=== PATIENT | male | born 1965 | race Caucasian/White ===

== ENCOUNTER 2019-07-30 14:45 | Emergency (ER) | payer OTHER ==
[~2019-07-30] VITALS: Ht 180.3 cm; Wt 107.0 kg
[2019-07-30 14:54] VITALS: Ht 180.3 cm; Wt 107.0 kg
[2019-07-30 18:15] VITALS: BP 140/94
== END 2019-07-30 18:15 | disposition home or self-care (01) ==
LOC: ED 14:45
DX: I83.91 Asymptomatic varicose veins of right lower extremity (principal); I10 Essential (primary) hypertension
CPT/HCPCS: J2001

== ENCOUNTER 2019-12-14 07:14 | Emergency (ER) | payer OTHER ==
[~2019-12-14] VITALS: Ht 180.3 cm; Wt 111.1 kg
[2019-12-14 07:21] VITALS: Ht 180.3 cm; Wt 111.1 kg
[2019-12-14 08:00] LABS: CARBON DIOXIDE 21.9 mmol/L (21-32); CHLORIDE SERUM 104 mmol/L (98-107); GFR1 > 60 mL/min; GLUCOSE SERUM 176 mg/dL (74-106); POTASSIUM SERUM 3.9 mmol/L (3.5-5.1); SODIUM SERUM 137 mmol/L (136-145)
[2019-12-14 08:05] LABS: ALBUMIN 4.3 g/dL (3.4-5.0); ALKALINE PHOSPHATASE 74 U/L (46-116); ALT/SGPT 31 U/L (16-63); AST/SGOT 12 U/L (15-37); BILIRUBIN TOTAL 0.41 mg/dL (0.20-1.00); TOTAL PROTEIN, SERUM 7.6 g/dL (6.4-8.2)
[2019-12-14 08:56] VITALS: BP 128/81
[2019-12-14 09:04] LABS: microscopic required? YES; urine erythrocyte 2+ (NEGATIVE)
== END 2019-12-14 08:56 | disposition home or self-care (01) ==
LOC: ED 07:14
PROVIDERS: Specialist
DX: R33.9 Retention of urine, unspecified (principal); I10 Essential (primary) hypertension